=== PATIENT | male | born 1950 | race Caucasian/White ===

== ENCOUNTER 2020-03-28 21:34 | Emergency (ER) | payer OTHER ==
[~2020-03-28] VITALS: Ht 170.2 cm; Wt 82.6 kg
[2020-03-28 23:07] VITALS: BP 145/88
[2020-03-28] MEDS ORDERED: BACITRACIN ZINC 0.9GM TP ONE (23:15)
== END 2020-03-28 23:24 | disposition home or self-care (01) ==
LOC: ER 21:39
DX: S01.112A Laceration without foreign body of left eyelid and periocular area, initial encounter (principal); Y04.0XXA Assault by unarmed brawl or fight, initial encounter; Y99.0 Civilian activity done for income or pay; E78.5 Hyperlipidemia, unspecified
CPT/HCPCS: 70486; 99284